=== PATIENT | female | born 1935 | race Caucasian/White ===

== ENCOUNTER 2022-03-08 09:38 | Day surgery (SDC) | payer OTHER, SELFPAY ==
[2022-03-08] MEDS: TETRACAINE 0.5% OPHTH 1 DROP EYE-LEFT ×2 (10:00→10:15)
[2022-03-08 10:10] VITALS: BP 142/65; PULSE 82; RESP 20; TEMP 36.3; O2SAT 97
[2022-03-08] MEDS: KETOROLAC OPHTH 0.5% 1 DROP EYE-LEFT ×3 (10:10→10:20)
[2022-03-08 10:16] VITALS: BMI 23.6
[2022-03-08] MEDS: SODIUM CHLORIDE 0.9 % (FLUSH) 10 ML SYRINGE IVF (10:25)
[2022-03-08] MEDS: TETRACAINE 0.5% OPHTH 2 DROP EYE-LEFT (11:21)
[2022-03-08] MEDS: BALANCED SALT IRRIG SOLN 15 ML EYE-LEFT (11:25)
--- NOTE | 2022-03-08 11:51 | W.ANESCHARGE ---
Anesthesia Charges Start Date/Time Anesthesia Start Date: 03/08/22 Anesthesia Start Time: 11:17 Stop Date/Time Anesthesia Stop Date: 03/08/22 Anesthesia Stop Time: 11:51 Summary Emergency: No Extremes of Age: Over 71-CPT 87474
[2022-03-08 11:52] VITALS: BP 142/69; PULSE 72; RESP 16; TEMP 36.5; O2SAT 97
--- NOTE | 2022-03-08 11:55 | W.ANESCHARGE ---
Anesthesia Charges Start Date/Time Anesthesia Start Date: 03/08/22 Anesthesia Start Time: 11:17 Stop Date/Time Anesthesia Stop Date: 03/08/22 Anesthesia Stop Time: 11:51 Summary Emergency: No Extremes of Age: Over 71-CPT 56092
--- NOTE | 2022-03-08 13:09 | P.PCN_ITS ---
Procedure Note Date Seen: 03/08/22 Will [facility] bill your pro fee for this procedure?: Yes Procedure Description: SURGEON: Andreea Uribe MD PREOPERATIVE DIAGNOSIS: Nuclear sclerotic cataract, left eye. POSTOPERATIVE DIAGNOSIS: Nuclear sclerotic cataract, left eye. NAME OF OPERATION: Phacoemulsification of cataract with posterior chamber intraocular lens implantation in the left eye. ANESTHESIA: Topical. ESTIMATED BLOOD LOSS: Less than 2 cc. COMPLICATIONS: None. PATHOLOGY SPECIMEN: None. INDICATIONS: See consult note for details. The risks, benefits and alternatives of the procedure were explained to the patient, who elected to proceed and signed informed consent to do so. PROCEDURE: The patient was brought to the pre-holding area where the left eye was identified as the operative eye. I placed my initials above this eye. The patient received eye drops consisting of 0.5% tetracaine, 1% tropicamide, 10% phenylephrine, and 0.5% ketorolac. The patient was given 12.5 grams IV mannitol and a honan balloon was placed for 8 minutes pre-operatively. The patient was then brought to the operating room where the left eye was again identified as the operative eye. The eye was prepped with Betadine and draped in the usual sterile ophthalmic fashion. A #15 super-sharp blade was used to create a paracentesis site. 1% non-preserved intracameral lidocaine was injected into the anterior chamber. Endocoat was injected into the anterior chamber. A 2.4 mm keratome was used to create a three-plane self-sealing incision 1 mm anterior to the temporal limbus. A cystotome was used to create an anterior capsular leaflet. The Utrata forceps were used to extend this to form a continuous curvilinear capsulorrhexis. Hydrodissection was performed. The cataract was removed with phacoemulsification using the [id number] technique. The irrigation and aspiration tip was used to remove the remaining cortex. Healon was injected into the capsular bag. An COLLEEN ZCB00 intraocular lens of 23.0 diopters was injected into the capsular bag. The irrigation and aspiration tip was used to remove the remaining viscoelastic. Balanced salt solution on a cannula was used to hydrate the wound, and the wound was found to be watertight. The pupil was noted to be round. DISPOSITION: The patient was taken to the recovery room and discharged to home in stable condition. The patient was instructed to call me or go to the emergency department with any sudden change, including dramatic loss of vision, severe pain in the eye or eyebrow region, nausea, or vomiting. The patient will follow up in the clinic tomorrow morning. Surgeon: Andreea Uribe MD
== END 2022-03-08 12:30 | disposition home or self-care (01) ==
PROVIDERS: PCP Family Medicine; Visit Provider Ophthalmology
PROC: (CPT 66984; principal; 2022-03-08 09:45)
DX: H25.12 Age-related nuclear cataract, left eye (principal)
CPT/HCPCS: 66984; 00142; 99100; A9270; J2150; J2250; J3010; V2632

== ENCOUNTER 2022-03-22 09:40 | Day surgery (SDC) | payer OTHER, SELFPAY ==
[2022-03-22] MEDS: KETOROLAC OPHTH 0.5% 1 DROP EYE-RIGHT ×3 (09:30→10:15)
[2022-03-22 10:00] VITALS: BP 155/69; PULSE 76; RESP 20; TEMP 37.1; O2SAT 99
[2022-03-22] MEDS: TETRACAINE 0.5% OPHTH 1 DROP EYE-RIGHT ×2 (10:00→10:05)
[2022-03-22] MEDS: SODIUM CHLORIDE 0.9 % (FLUSH) 10 ML SYRINGE IVF (10:24)
[2022-03-22 10:35] VITALS: BMI 23.6
--- NOTE | 2022-03-22 10:39 | SUR.PREOP ---
The eye drops brought by the patient (Ketorolac and Prednisolone) are examined and I have determined they are labeled by the patient's pharmacy for this patient as prescribed by the surgeon. The bottles are intact, recently obtained and appear to be correct.
[2022-03-22] MEDS: TETRACAINE 0.5% OPHTH 2 DROP EYE-RIGHT (11:03)
[2022-03-22] MEDS: BALANCED SALT IRRIG SOLN 15 ML EYE-RIGHT (11:07)
--- NOTE | 2022-03-22 11:36 | W.ANESCHARGE ---
Anesthesia Charges Start Date/Time Anesthesia Start Date: 03/22/22 Anesthesia Start Time: 10:59 Stop Date/Time Anesthesia Stop Date: 03/22/22 Anesthesia Stop Time: 11:38 Summary Emergency: No Extremes of Age: Over 71-CPT 42489
[2022-03-22 11:40] VITALS: BP 153/79; PULSE 76; RESP 20; TEMP 36.4; O2SAT 99
--- NOTE | 2022-03-22 11:40 | W.ANESCHARGE ---
Anesthesia Charges Start Date/Time Anesthesia Start Date: 03/22/22 Anesthesia Start Time: 10:59 Stop Date/Time Anesthesia Stop Date: 03/22/22 Anesthesia Stop Time: 11:38 Summary Emergency: No Extremes of Age: Over 71-CPT 70377
--- NOTE | 2022-03-22 11:40 | PM.PROC ---
Procedure Note Date Seen: 03/22/22 Will [facility] bill your pro fee for this procedure?: Yes Procedure Description: SURGEON: Andreea Uribe MD PREOPERATIVE DIAGNOSIS: Nuclear sclerotic cataract, right eye. POSTOPERATIVE DIAGNOSIS: Nuclear sclerotic cataract, right eye. NAME OF OPERATION: Phacoemulsification of cataract with posterior chamber intraocular lens implantation in the right eye. ANESTHESIA: Topical. ESTIMATED BLOOD LOSS: Less than 2 cc. COMPLICATIONS: None. PATHOLOGY SPECIMEN: None. INDICATIONS: See consult note for details. The risks, benefits and alternatives of the procedure were explained to the patient, who elected to proceed and signed informed consent to do so. PROCEDURE: The patient was brought to the pre-holding area where the right eye was identified as the operative eye. I placed my initials above this eye. The patient received eye drops consisting of 0.5% tetracaine, 1% tropicamide, 10% phenylephrine, and 0.5% ketorolac. The patient was given 12.5 grams IV mannitol and a Honan balloon was placed for 8 minutes pre-operatively. The patient was then brought to the operating room where the right eye was again identified as the operative eye. The eye was prepped with Betadine and draped in the usual sterile ophthalmic fashion. A #15 super-sharp blade was used to create a paracentesis site. 1% non-preserved intracameral lidocaine was injected into the anterior chamber. Endocoat was injected into the anterior chamber. A 2.4 mm keratome was used to create a three-plane self-sealing incision 1 mm anterior to the temporal limbus. A cystotome was used to create an anterior capsular leaflet. The Utrata forceps were used to extend this to form a continuous curvilinear capsulorrhexis. Hydrodissection was performed. The cataract was removed with phacoemulsification using the [id number] technique. The irrigation and aspiration tip was used to remove the remaining cortex. Healon was injected into the capsular bag. An COLLEEN ZCB00 intraocular lens of 23.0 diopters was injected into the capsular bag. The irrigation and aspiration tip was used to remove the remaining viscoelastic. Balanced salt solution on a cannula was used to hydrate the wound, and the wound was found to be watertight. The pupil was noted to be round. DISPOSITION: The patient was taken to the recovery room and discharged to home in stable condition. The patient was instructed to call me or go to the emergency department with any sudden change, including dramatic loss of vision, severe pain in the eye or eyebrow region, nausea, or vomiting. The patient will follow up in the clinic tomorrow morning. Surgeon: Andreea Uribe MD
== END 2022-03-22 12:07 | disposition home or self-care (01) ==
PROVIDERS: PCP Family Medicine; Visit Provider Ophthalmology
PROC: (CPT 66984; principal; 2022-03-22 09:45)
DX: H25.11 Age-related nuclear cataract, right eye (principal)
CPT/HCPCS: 66984; 00142; 99100; A9270; J2150; J2250; J3010; V2632

== ENCOUNTER 2022-08-21 10:32 | Outpatient (CLI) | payer OTHER, SELFPAY ==
[2022-08-21 23:09] LABS: Albumin* 4.5 g/dL (3.3-5.0)
[2022-08-21 23:10] LABS: Chloride* 101 mmol/L (96-114); Potassium* 4.6 mmol/L (3.6-5.1); Sodium* 136 mmol/L (135-149)
[2022-08-21 23:12] LABS: Cholesterol* 193 mg/dL (90-199); Creatinine* 0.6 mg/dL (0.5-1.5); Estimated Glomerular Filt Rate 88 ml/min
[2022-08-21 23:13] LABS: Alanine Aminotransferase* 16 U/L (4-35); Alkaline Phosphatase* 97 U/L (40-150); Aspartate Amino Transferase* 25 U/L (12-35); Bilirubin Total* 0.6 mg/dL (0.1-1.5); Blood Urea Nitrogen* 12 mg/dL (7-30); Calcium* 9.8 mg/dL (8.4-10.6); Carbon Dioxide* 23 mmol/L (20-32); Glucose* 114 mg/dL (60-115); Total Protein* 8.2 g/dL (6.0-8.3); Triglycerides* 128 mg/dL (40-149)
[2022-08-21 23:14] LABS: HDL Cholesterol* 51 mg/dL (>=50); LDL Cholesterol Calculated 116 mg/dL (<100)
[2022-08-22 00:01] LABS: Vitamin B12* 630 pg/mL (243-894)
[2022-08-24 05:04] LABS: Vitamin D, 1,25-Dihydroxy 57.8 pg/mL (19.9-79.3)
== END 2022-08-21 10:33 | disposition home or self-care (01) ==
PROVIDERS: PCP Family Medicine; Visit Provider Family Medicine
DX: E11.9 Type 2 diabetes mellitus without complications (principal); R53.83 Other fatigue; I10 Essential (primary) hypertension; R19.4 Change in bowel habit
CPT/HCPCS: 80053; 80061; 82607; 82652; 84443

== ENCOUNTER 2023-07-27 12:01 | Outpatient (CLI) | payer OTHER, SELFPAY | END 2023-07-27 12:02 | disposition home or self-care (01) | PROVIDERS: PCP Family Medicine; Visit Provider Family Medicine | DX: Z00.00 Encounter for general adult medical examination without abnormal findings (principal); R53.83 Other fatigue; I10 Essential (primary) hypertension; E11.9 Type 2 diabetes mellitus without complications | CPT/HCPCS: 80053; 82043; 82570 ==

== ENCOUNTER 2023-11-19 11:54 | Outpatient (CLI) | payer OTHER, SELFPAY | END 2023-11-19 11:55 | disposition home or self-care (01) | LOC: LKVREF 11:57 | PROVIDERS: PCP Family Medicine; Visit Provider Family Medicine | DX: E11.9 Type 2 diabetes mellitus without complications (principal); R63.4 Abnormal weight loss | CPT/HCPCS: 86140 ==

== ENCOUNTER 2023-12-17 11:07 | Outpatient (CLI) | payer OTHER, SELFPAY | END 2023-12-17 11:08 | disposition home or self-care (01) | PROVIDERS: PCP Family Medicine; Visit Provider Family Medicine | DX: D64.9 Anemia, unspecified (principal) | CPT/HCPCS: 82607; 83540; 83550 ==

== ENCOUNTER 2024-08-22 10:34 | Outpatient (CLI) | payer MEDICARE, SELFPAY | END 2024-08-22 10:35 | disposition home or self-care (01) | LOC: NFLDREF 08-30 21:26 | PROVIDERS: PCP Family Medicine; Referring Provider Family Medicine; Visit Provider Family Medicine | DX: R53.83 Other fatigue (principal); E11.9 Type 2 diabetes mellitus without complications; I10 Essential (primary) hypertension; Z87.19 Personal history of other diseases of the digestive system; D72.829 Elevated white blood cell count, unspecified; G47.00 Insomnia, unspecified; R52 Pain, unspecified; K59.01 Slow transit constipation; L71.9 Rosacea, unspecified; B37.0 Candidal stomatitis | CPT/HCPCS: 80053; 80061; 82043; 82570; 84443 ==

== ENCOUNTER 2025-07-17 09:55 | Outpatient (CLI) | payer MEDICARE, SELFPAY | END 2025-07-17 09:56 | disposition home or self-care (01) | LOC: LKVREF 10:07 | PROVIDERS: PCP Family Medicine; Visit Provider Family Medicine | DX: Z00.00 Encounter for general adult medical examination without abnormal findings (principal); D64.9 Anemia, unspecified; E11.9 Type 2 diabetes mellitus without complications; I10 Essential (primary) hypertension; M81.0 Age-related osteoporosis without current pathological fracture | CPT/HCPCS: 80053; 80061 ==